=== PATIENT | male | born 1980 | race Caucasian/White ===

== ENCOUNTER 2017-01-14 14:38 | Inpatient (IN) | payer MEDICAID ==
[~2017-01-14] VITALS: Ht 175.3 cm; Wt 101.6 kg
[2017-01-14] MEDS ORDERED: DIVA500T35 PO (15:03)
[2017-01-14] MEDS ORDERED: CETI-260 PO (15:03)
[2017-01-14] MEDS ORDERED: GABA-533 PO (15:03)
[2017-01-14] MEDS ORDERED: SODIUM CHLORIDE 0.9% 1,000 ML IV ONE (15:45)
[2017-01-14 15:49] LABS: ANION GAP 7 mmol/L (8-16); CALCIUM, TOTAL 8.9 mg/dL (8.8-10.5); CARBON DIOXIDE 28 mmol/L (22-29); CHLORIDE 107 mmol/L (98-107); GLOMERULAR FILTR. RATE CALC > 60 mL/min (>60); POTASSIUM 3.6 mmol/L (3.5-5.1); SODIUM SERUM 142 mmol/L (136-145); UREA NITROGEN, BLOOD 13 mg/dL (7-18)
[2017-01-14 16:01] LABS: ALANINE AMINOTRANSFERASE 31 U/L (12-78); ALBUMIN 3.9 g/dL (3.4-5.0); ASPARTATE AMINOTRANSFERASE 52 U/L (15-37); BILIRUBIN,TOTAL 0.7 mg/dL (0.1-1.0); TOTAL PROTEIN, SERUM 7.9 g/dL (6.4-8.2); VALPROIC ACID 49 mcg/mL (50-100)
[2017-01-14 16:21] LABS: APPEARANCE,URINE CLEAR (CLEAR); GLUCOSE, URINE (UA) NEGATIVE (NEGATIVE); KETONES,URINE TRACE mg/dL (NEGATIVE); LEUKOCYTE ESTERASE ,URINE NEGATIVE (NEGATIVE); OCCULT BLOOD,URINE NEGATIVE (NEGATIVE); PROTEIN,URINE POS 1+ (NEGATIVE)
[2017-01-14 16:24] LABS: BASOPHILS % (AUTO) 1.1 % (0.0-2.0); HEMOGLOBIN 13.9 g/dL (13.5-17.5); LYMPHOCYTES # (AUTO) 2.1 K/uL (1.0-4.8); LYMPHOCYTES % (AUTO) 29.1 % (22.0-44.0); MEAN CORPUSCULAR HEMOGLOBIN 29.6 pg (26.0-34.0); MEAN CORPUSCULAR HGB CONC 33.1 G/dL (31.0-37.0); MEAN CORPUSCULAR VOLUME 89 fL (80-100); MONOCYTES # (AUTO) 0.9 K/uL (0.1-1.0); NEUTROPHILS # (AUTO) 3.6 K/uL (1.8-7.7); NEUTROPHILS % (AUTO) 50.8 % (40.0-70.0); PLATELET COUNT (AUTO) 254 K/uL (150-450); RED CELL DISTRIBUTION WIDTH 14.2 % (11.5-14.5); WHITE BLOOD COUNT (AUTO) 7.1 K/uL (4.5-11.0)
[2017-01-14] MEDS ORDERED: LACTULOSE 20 GM/30 ML SOLUTION UDCUP PO ONE (16:45)
[2017-01-14 17:28] LABS: ADD UA MICROSCOPIC YES
[2017-01-14 17:29] LABS: RBC,URINE 0-2 /HPF (0-2); SQUAMOUS EPITHELIAL CELL,UR Rare /LPF (None Seen)
[2017-01-14] MEDS ORDERED: LORazepam 2 MG/ML VIAL IVP ONE (18:15)
[2017-01-14 20:28] VITALS: BP 111/75
[2017-01-14] MEDS ORDERED: MAGNESIUM HYDROXIDE SUSPENSION 30 ML UDCUP PO PRN (22:00)
[2017-01-14] MEDS ORDERED: ACETAMINOPHEN 325 MG TABLET PO PRN (22:00)
[2017-01-14] MEDS ORDERED: LORazepam 2 MG/ML VIAL IVP PRN (22:00)
[2017-01-14] MEDS ORDERED: ONDANSETRON HCL 4 MG/2 ML VIAL IVP PRN (22:00)
[2017-01-14] MEDS: DEXTROSE 5%-0.45% SODIUM CHL 1,000 ML IV SCH (22:18)
[2017-01-14 23:48] VITALS: BP 113/73
[2017-01-15 04:51] VITALS: BP 110/67
[2017-01-15 06:51] LABS: ALANINE AMINOTRANSFERASE 24 U/L (12-78); ALBUMIN 3.2 g/dL (3.4-5.0); ANION GAP 8 mmol/L (8-16); ASPARTATE AMINOTRANSFERASE 37 U/L (15-37); BILIRUBIN,TOTAL 0.6 mg/dL (0.1-1.0); CALCIUM, TOTAL 8.3 mg/dL (8.8-10.5); CARBON DIOXIDE 28 mmol/L (22-29); CHLORIDE 108 mmol/L (98-107); GLOMERULAR FILTR. RATE CALC > 60 mL/min (>60); POTASSIUM 3.5 mmol/L (3.5-5.1); SODIUM SERUM 144 mmol/L (136-145); TOTAL PROTEIN, SERUM 6.6 g/dL (6.4-8.2); UREA NITROGEN, BLOOD 7 mg/dL (7-18)
[2017-01-15 07:02] VITALS: BP 105/67
[2017-01-15] MEDS ORDERED: PANTOPRAZOLE SODIUM 40 MG/VIAL IVP SCH (09:00)
[2017-01-15] MEDS ORDERED: DOCUSATE SODIUM 100 MG CAPSULE PO SCH (09:00)
[2017-01-15] MEDS: DEXTROSE 5%-0.45% SODIUM CHL 1,000 ML IV SCH (10:13)
[2017-01-15 11:21] VITALS: BP 111/52
[2017-01-15 15:26] VITALS: BP 104/69
[2017-01-15 19:57] VITALS: BP 113/66
[2017-01-16 07:22] LABS: GLUCOSE,POINT OF CARE 108 MG/DL (70-110)
== END 2017-01-15 20:18 | disposition home or self-care (01) | DRG 52 ==
LOC: EMS 14:40 → 5N 18:14
PROVIDERS: ADMIT Hospitalist; ATTEND Hospitalist
DX: G92 Toxic encephalopathy (principal); F41.9 Anxiety disorder, unspecified; F19.10 Other psychoactive substance abuse, uncomplicated; K59.00 Constipation, unspecified; Z79.899 Other long term (current) drug therapy; Z87.891 Personal history of nicotine dependence
CPT/HCPCS: 51702; 70450; 82962; 87086; 93005; 96361; 96374; 99285; C9113; G0480; J2060; J7030

== ENCOUNTER 2020-04-18 23:14 | Emergency (ER) | payer MEDICAID ==
[~2020-04-18] VITALS: Ht 175.3 cm; Wt 95.5 kg
[~2020-04-18 23:14] MED LIST: CETI-450 PO; DIVA-112 PO; GABA-1201 PO
[2020-04-18] MEDS ORDERED: CEPH-582 PO (23:17)
[2020-04-19] MEDS ORDERED: CEPHALEXIN MONOHYDRATE 500 MG CAPSULE PO ONE (02:30)
[2020-04-19] MEDS ORDERED: DOXYCYCLINE HYCLATE 100 MG CAPSULE PO ONE (02:30)
[2020-04-19 03:00] VITALS: BP 128/76
== END 2020-04-19 03:00 | disposition home or self-care (01) ==
LOC: EMS 23:14
DX: L03.116 Cellulitis of left lower limb (principal); F17.210 Nicotine dependence, cigarettes, uncomplicated; F12.90 Cannabis use, unspecified, uncomplicated

== ENCOUNTER 2020-04-20 14:16 | Emergency (ER) | payer MEDICAID ==
[~2020-04-20] VITALS: Ht 175.3 cm; Wt 95.5 kg
[~2020-04-20 14:16] MED LIST changes: +CEPH-582 PO; -CETI-450 PO; -DIVA-112 PO; -GABA-1201 PO
[2020-04-20] MEDS ORDERED: CefTRIAXone 1 GM/DEXTROSE 50 ML IV ONE (15:15)
[2020-04-20] MEDS ORDERED: MUPIROCIN CALCIUM 2% 22 GM OINTMENT TP ONE (15:30)
[2020-04-20] MEDS ORDERED: VANCOMYCIN HCL 1 GM/D5% WATER 200 ML IV ONE (16:15)
[2020-04-20] MEDS ORDERED: ACETAMINOPHEN 500 MG TABLET PO ONE (16:15)
[2020-04-20 16:58] LABS: BASOPHILS % (AUTO) 1.3 % (0.0-2.0); HEMATOCRIT 37.9 % (41-53); HEMOGLOBIN 12.7 g/dL (13.5-17.5); LYMPHOCYTES # (AUTO) 1.5 K/uL (1.0-4.8); LYMPHOCYTES % (AUTO) 24.2 % (22.0-44.0); MEAN CORPUSCULAR HEMOGLOBIN 29.1 pg (26.0-34.0); MEAN CORPUSCULAR HGB CONC 33.5 G/dL (31.0-37.0); MEAN CORPUSCULAR VOLUME 87 fL (80-100); MONOCYTES # (AUTO) 0.6 K/uL (0.1-1.0); MONOCYTES % (AUTO) 9.7 % (2.0-9.0); NEUTROPHILS # (AUTO) 3.7 K/uL (1.8-7.7); NEUTROPHILS % (AUTO) 60.8 % (40.0-70.0); PLATELET COUNT (AUTO) 365 K/uL (150-450); RED BLOOD CELL COUNT(AUTO) 4.37 MIL/uL (4.50-5.90); RED CELL DISTRIBUTION WIDTH 13.8 % (11.5-14.5)
[2020-04-20 17:09] LABS: GLUCOSE,POINT OF CARE 79 MG/DL (70-110)
[2020-04-20 17:37] LABS: ANION GAP 9 mmol/L (8-16); CALCIUM, TOTAL 8.8 mg/dL (8.8-10.5); CARBON DIOXIDE 27 mmol/L (22-29); CHLORIDE 103 mmol/L (98-107); CREATININE 0.77 mg/dL (0.60-1.30); GLOMERULAR FILTR. RATE CALC > 60 mL/min (>60); GLUCOSE,RANDOM 103 mg/dL (70-110); POTASSIUM 3.8 mmol/L (3.5-5.1); SODIUM SERUM 139 mmol/L (136-145); UREA NITROGEN, BLOOD 21 mg/dL (7-18)
[2020-04-20 17:44] LABS: ALANINE AMINOTRANSFERASE 17 U/L (12-78); ALKALINE PHOSPHATASE 81 U/L (46-116); ASPARTATE AMINOTRANSFERASE 17 U/L (15-37); BILIRUBIN,TOTAL 0.3 mg/dL (0.1-1.0); C-REACTIVE PROTEIN QUANT 2.28 mg/dL (0.00-0.30); TOTAL PROTEIN, SERUM 8.1 g/dL (6.4-8.2)
[2020-04-20 18:08] LABS: ALBUMIN 3.5 g/dL (3.4-5.0)
[2020-04-20 18:46] LABS: ERYTHROCYTE SEDIMENTATION RATE 37 MM/HR (0-15)
[2020-04-20 18:50] VITALS: BP 136/79
== END 2020-04-20 19:00 | disposition left against medical advice (07) ==
LOC: EMS 14:20 → UNDOADMIN 17:47 → 4E 17:47 → EMS 19:00
DX: L03.116 Cellulitis of left lower limb (principal); F19.10 Other psychoactive substance abuse, uncomplicated; F17.210 Nicotine dependence, cigarettes, uncomplicated; F12.90 Cannabis use, unspecified, uncomplicated
CPT/HCPCS: 36415; 80053; 82962; 85025; 85651; 86140; 87040; 87070; 87077; 87186; 87205; 96365; 96366; 96367; 99285; J0696; J3370